=== PATIENT | female | born 1995 | race American Indian/Alaskan Native ===

== ENCOUNTER 2022-07-07 14:35 | Emergency (ER) | payer SELFPAY ==
--- NOTE | 2022-07-07 17:23 | XRay Report ---
CHEST 2 VIEWS INDICATION / CLINICAL INFORMATION: Productive cough for 3 days. Shortness of breath and chest tightne ss. History of asthma. COMPARISON: None available. FINDINGS: SUPPORT DEVICES: None. HEART / MEDIASTINUM: No significant abnormality. LUNGS / PLEURA: There is a small poorly defined area of parenchymal opacity in the right upper lobe o verlying the third anterior rib. The lungs are otherwise clear. No pleural effusion. No pneumothorax. ADDITIONAL FINDINGS: No significant additional findings. IMPRESSION: Small ill-defined area of parenchymal opacity in the right upper lobe is probably inflamm atory. Short-term follow-up after appropriate antibiotic therapy is recommended to document resolutio n. Signer Name: Dean Decker MD Signed: 07/07/2022 5:18 PM Workstation Name: [id number]
--- NOTE | 2022-07-07 21:00 | Emergency Department Report ---
ED General Adult HPI - General Chief complaint: Upper Respiratory Infection Stated complaint: COUGH UP BLOOD Time Seen by Provider: 07/07/22 20:34 Source: patient Mode of arrival: Ambulatory Limitations: No Limitations - History of Present Illness Initial comments: Patient 27-year-old female history of asthma who presents with cough x2 days productive states blood-tinged today mucus is yellow-green. Patient denies fevers or chills however states she had 1 nocturnal fever yesterday patient is COVID vaccinated. Patient denies wheezing. As are exacerbated by amount of exposure. Symptoms are relieved by nothing tried Severity scale (0 -10): 0 - Related Data Previous Rx's Medication Instructions Recorded Last Taken Type Albuterol Mdi (or & Nicu Only) 2 puff IH QID PRN #8.5 gram 07/07/22 Unknown Rx [ProAir HFA Inhaler] Azithromycin 500 mg PO DAILY #5 tab 07/07/22 Unknown Rx predniSONE [Deltasone] 40 mg PO DAILY 5 Days #10 tab 07/07/22 Unknown Rx Allergies Allergy/AdvReac Type Severity Reaction Status Date / Time Penicillins Allergy Hives Verified 07/07/22 16:54 ED Review of Systems ROS: Stated complaint: COUGH UP BLOOD Other details as noted in HPI Constitutional: fever, malaise. denies: chills Eyes: denies: eye pain, eye discharge, vision change ENT: denies: ear pain, throat pain Respiratory: cough, shortness of breath. denies: wheezing Cardiovascular: denies: chest pain, palpitations Endocrine: no symptoms reported Gastrointestinal: denies: abdominal pain, nausea, diarrhea Genitourinary: denies: urgency, dysuria, discharge Musculoskeletal: denies: back pain, joint swelling, arthralgia Skin: denies: rash, lesions Neurological: denies: headache, weakness, paresthesias Psychiatric: denies: anxiety, depression Hematological/Lymphatic: denies: easy bleeding, easy bruising ED Past Medical Hx - Medications Home Medications: Home Medications Medication Instructions Recorded Confirmed Last Taken Type Albuterol Mdi (or & Nicu Only) 2 puff IH QID PRN #8.5 gram 07/07/22 Unknown Rx [ProAir HFA Inhaler] Azithromycin 500 mg PO DAILY #5 tab 07/07/22 Unknown Rx predniSONE [Deltasone] 40 mg PO DAILY 5 Days #10 tab 07/07/22 Unknown Rx ED Physical Exam - General Limitations: No Limitations General appearance: alert, in no apparent distress - Head Head exam: Present: normocephalic, normal inspection - Eye Eye exam: Present: PERRL, EOMI. Absent: conjunctival injection, nystagmus Pupils: Present: normal accommodation - ENT ENT exam: Present: normal orophraynx, mucous membranes moist, TM's normal bilaterally - Neck Neck exam: Present: normal inspection, full ROM. Absent: tenderness, lymphadenopathy - Respiratory Respiratory exam: Present: normal lung sounds bilaterally, chest wall tenderness (Right lateral chest wall no crepitus no ecchymosis no step-off). Absent: wheezes, rales, rhonchi, stridor, prolonged expiratory - Cardiovascular Cardiovascular Exam: Present: regular rate, normal rhythm, normal heart sounds. Absent: systolic murmur, diastolic murmur, rubs, gallop - GI/Abdominal GI/Abdominal exam: Present: soft, normal bowel sounds. Absent: distended, tenderness - Rectal Rectal exam: Present: deferred - Extremities Exam Extremities exam: Present: normal inspection, full ROM, normal capillary refill. Absent: tenderness, pedal edema - Back Exam Back exam: Present: normal inspection, full ROM. Absent: CVA tenderness (R), CVA tenderness (L) - Neurological Exam Neurological exam: Present: alert, oriented X3, CN II-XII intact, normal gait - Psychiatric Psychiatric exam: Present: normal affect, normal mood - Skin Skin exam: Present: warm, dry, intact, normal color. Absent: rash ED Course Vital Signs 07/07/22 16:48 Temperature 97.9 F Pulse Rate 86 Respiratory 14 Rate Blood Pressure 113/69 [Right] O2 Sat by Pulse 97 Oximetry ED Medical Decision Making - Radiology Data Radiology results: report reviewed, image reviewed CHEST 2 VIEWS INDICATION / CLINICAL INFORMATION: Productive cough for 3 days. Shortness of breath and chest tightness. History of asthma. COMPARISON: None available. FINDINGS: SUPPORT DEVICES: None. HEART / MEDIASTINUM: No significant abnormality. LUNGS / PLEURA: There is a small poorly defined area of parenchymal opacity in the right upper lobe overlying the third anterior rib. The lungs are otherwise clear. No pleural effusion. No pneumothorax. ADDITIONAL FINDINGS: No significant additional findings. IMPRESSION: Small ill-defined area of parenchymal opacity in the right upper lobe is probably inflammatory. Short-term follow-up after appropriate antibiotic therapy is recommended to document resolution. Signer Name: Dean Decker MD Signed: 07/07/2022 5:18 PM Workstation Name: [id number] Transcribed By: RT Dictated By: Dean Decker MD Electronically Authenticated By: Dean Decker MD Signed Date/Time: 07/07/221717 DD/ 15 TD/TT: - Medical Decision Making Chest x-ray consistent with right lower CAP plan treat for same patient will DC to home with prescriptions. Patient will follow-up primary care doctor in 2 to 3 days. Patient given strict instructions to return to ED should symptoms worsen. Patient verbalized agreement understanding of discharge plan. Patient DC'd home in stable condition at this time. Critical care attestation.: If time is entered above; I have spent that time in minutes in the direct care of this critically ill patient, excluding procedure time. ED Disposition Clinical Impression: CAP (community acquired pneumonia) Qualifiers: Laterality: right Lung location: lower lobe of lung Qualified Code(s): J18.9 - Pneumonia, unspecified organism Disposition: 01 HOME / SELF CARE / HOMELESS Is pt being admited?: No Does the pt Need Aspirin: No Condition: Stable Instructions: Bacterial Pneumonia (ED), Community-Acquired Pneumonia, Adult Additional Instructions: Take medication as prescribed, follow-up with your doctor in 2 to 3 days. Return to emergency department should symptoms worsen. Prescriptions: Azithromycin 500 mg PO DAILY #5 tab predniSONE [Deltasone] 40 mg PO DAILY 5 Days #10 tab Albuterol Mdi (or & Nicu Only) [ProAir HFA Inhaler] 2 puff IH QID PRN #8.5 gram PRN Reason: Shortness Of Breath Referrals: [facility] [Provider Group] - 3-5 Days Forms: Work/School Release Form(ED) Time of Disposition: 21:00
[2022-07-07] MEDS ORDERED: IBUPROFEN 800 MG TAB PO ONE (21:24)
[2022-07-07 23:24] VITALS: BP 124/72
== END 2022-07-07 23:24 | disposition home or self-care (01) ==
LOC: ED 14:35
DX: J18.9 Pneumonia, unspecified organism (principal); Z88.0 Allergy status to penicillin; Z79.899 Other long term (current) drug therapy
CPT/HCPCS: 71046; 99283